=== PATIENT | male | born 2000 | race Caucasian/White ===

== ENCOUNTER 2021-01-04 08:50 | Inpatient (IN) | payer OTHER, MEDICAID ==
[~2021-01-04] VITALS: Ht 180.3 cm; Wt 78.5 kg
--- NOTE | ~2021-01-04 | OP ---
[facility] [address] [place] [address] OPERATIVE REPORT Name: BIANCA MEJIA Room: [place] [address] ADM IN M.R.#: [id number] Admission: 01/04/21 Attend Phys: Milind Martinez MD Discharge: Date of : 01 Report #: [id number] THIS REPORT FOR: cc: FAM - No family physician/PCP FAM - No family physician/PCP Justyn Preciado MD ~ DATE OF SURGERY: 01/04/2021 PREOPERATIVE DIAGNOSIS: Acute appendicitis. POSTOPERATIVE DIAGNOSIS: Acute appendicitis. OPERATION: Laparoscopic appendectomy. SURGEON: Justyn Preciado MD. ANESTHESIA: General. ESTIMATED BLOOD LOSS: Minimal. SPECIMENS: Appendix. DESCRIPTION OF PROCEDURE: After informed consent was obtained, the patient was brought to the operating room and placed supine. SCDs were placed and working, preoperative antibiotics were administered, general anesthesia was induced. The abdomen was prepped and draped in the usual sterile fashion. A 10 mm incision was made below the umbilicus. Fascia was incised and a trocar was placed. Pneumoperitoneum was established. A right upper quadrant, left lower quadrant 5 mm trocars were placed. The appendix was grasped and retracted anteriorly. A window was made in the mesoappendix. Mesoappendix was ligated using the LigaSure device. The base of the appendix was then ligated using a PDS Endoloop. The appendix was then cut and placed into a specimen bag and removed. The fascia was closed with 0 Vicryl. Skin was closed with 4-0 Monocryl. Incisions were dressed with Steri-Strips. COMPLICATIONS: None. DISPOSITION: The patient was taken to recovery in satisfactory condition. By: [id number] Preciado MD /mariann
[2021-01-04 09:06] VITALS: BP 135/77
[2021-01-04 09:20] LABS: URINE BILIRUBIN NEGATIVE (Negative); URINE BLOOD NEGATIVE (Negative); URINE CLARITY CLEAR; URINE COLOR YELLOW; URINE GLUCOSE-RANDOM NEGATIVE (Negative); URINE KETONES 1+ (Negative); URINE LEUKOCYTES-REFLEX NEGATIVE (Negative); URINE NITRITE-REFLEX NEGATIVE (Negative); URINE PROTEIN NEGATIVE (Negative); URINE UROBILINOGEN 0.2 E.U./dl (0.2-1.0)
[2021-01-04 09:29] LABS: ABSOLUTE BASOPHILS 0.1 thou/uL (0.0-0.2); ABSOLUTE LYMPHOCYTES 2.5 thou/uL (0.8-5.3); ABSOLUTE NEUTROPHILS 9.4 thou/uL (1.6-8.1); BASOPHILS 0.6 %; EOSINOPHILS 0.4 %; HEMATOCRIT 44.1 % (42.0-52.0); HEMOGLOBIN 14.7 gm/dL (14.0-18.0); LYMPHOCYTES 19.1 %; MCH 29.4 pg (26.0-34.0); MCHC 33.2 g/dL (28.0-37.0); MCV 88.6 fL (80.0-100.0); MONOCYTES 7.4 %; MPV 8.6 fl. (7.2-11.1); NUCLEATED RBCS 0 /100WBC; PLATELET COUNT* 259 thou/uL (150-400); POLYS 72.5 %; RBC 4.98 mil/uL (4.50-6.00); RDW-CV 13.3 % (10.5-14.5)
[2021-01-04 09:33] LABS: CALCIUM 9.6 mg/dL (8.5-10.1); CREATININE 1.1 mg/dL (0.6-1.3); POTASSIUM 3.5 mmol/L (3.5-5.1)
[2021-01-04 09:43] LABS: ALBUMIN 4.3 g/dL (3.4-5.0); TOTAL BILIRUBIN 1.3 mg/dL (<0.1-1.0); TOTAL PROTEIN 8.4 g/dL (6.4-8.2)
[2021-01-04 11:18] VITALS: BP 127/74
[2021-01-04] MEDS ORDERED: NORCO5 PO (14:45)
[2021-01-04 14:48] VITALS: BP 127/74
[2021-01-04 15:05] VITALS: BP 127/74
--- NOTE | 2021-01-07 16:06 | PATH ---
[address] [address] PATHOLOGY RPT PROCEDURE Name: ANDRE MEJIATEJAL Thakur Room: [address] IN [facility].#: [id number] Admission: 01/04/21 Date of : 01 Discharge: 01/04/21 Report #: [id number] Path Case #: [id number] [facility] Accession Number: [id number] . 01 Material submitted: . appendix - APPENDIX . 01 Clinical history: . ACUTE APPENDICITIS . 02 Diagnosis: Appendix: - Acute appendicitis, periappendicitis and serositis. (GIGI:[facility]; 01/07/2021) [facility] 01/07/2021 1245 Local . 02 Electronically signed: . Renato Mukherjee MD, Pathologist NPI- [id number] . 01 Gross description: . Fixative: Formalin Labeled: Appendix Appendix length: 6.2 cm Appendix diameter: 1.4 cm Mesoappendix: 4.9 x 1.6 x 1.2 cm Proximal margin: Open Serosa: Smooth, wilson-white with scattered purulent exudate Cut surface: Wilson-white Luminal diameter: 0.7 cm Perforation: No gross perforation Lesions/abnormalities: Described above A1 Proximal margin (inked black) and distal tip, bisected A2 Mid appendix ([facility]; 01/05/2021) GZA/GZA 01/05/2021 0708 [facility] . 02 Pathologist provided ICD-10: K35.80, K65.8 . 02 CPT . 602586 Specimen Comment: A courtesy copy of this report has been sent to [phone] Specimen Comment: Report sent to ,DR JOHNSON Performed at: [address] [id number] MD Cordell Anne MD Phone: [phone] Performed at: [address] [address] PATHOLOGY RPT PROCEDURE Name: BIANCA MEJIA Ofe Room: [address]#: [id number] Admission: 01/04/21 Date of : 01 Discharge: 01/04/21 Report #: [id number] Path Case #: [id number] [address] [id number] MD Renato Mukherjee MD Phone: [phone]
== END 2021-01-04 15:05 | disposition home or self-care (01) | DRG 343 ==
LOC: M.ERS 08:50 → M.TBA-ER 11:04 → M.ERS 11:20 → M.TBA-ER 15:05
PROVIDERS: Emergency Medicine Emergency Medical Services; ADMIT Surgery; ATTEND Surgery
PROC: 0DTJ0ZZ Resection of Appendix, Open Approach (ICD-10-PCS; principal; 2021-01-04)
DX: K35.80 Unspecified acute appendicitis (principal); Z20.822 Contact with and (suspected) exposure to COVID-19; F17.210 Nicotine dependence, cigarettes, uncomplicated; F90.9 Attention-deficit hyperactivity disorder, unspecified type